=== PATIENT | female | born 1985 | race Caucasian/White ===

== ENCOUNTER 2016-04-15 10:01 | Day surgery (SDC) | payer OTHER ==
[2016-04-07 13:52] LABS: HEMATOCRIT 33.6 % (37.0-47.0); HEMOGLOBIN 10.4 g/dL (12.0-16.0); MCH 21.4 PG (27-31); MCV 69.3 FL (81-99); MPV 9.4 FL (7.4-10.4); RBC 4.85 XMIL (4.2-5.4)
[2016-04-07 14:22] LABS: AGAP 12; ALBUMIN 4.4 g/dL (3.5-5.0); ALKALINE PHOSPHATASE 53 U/L (32-104); BUN 10 mg/dL (8-22); CALCIUM 9.9 mg/dL (8.8-10.2); CHLORIDE 101 mmol/L (98-107); COSMO 281; GOT 14 U/L (10-30); GPT 13 U/L (10-36); POTASSIUM 4.5 mmol/L (3.5-5.1); SODIUM 141 mmol/L (136-145); TCO2 28 mmol/L (25-35); TOTAL BILIRUBIN 0.19 mg/dL (0.20-1.00); TOTAL PROTEIN 7.4 g/dL (6.3-8.3)
[2016-04-15] MEDS ORDERED: REGLAN ONE (10:28)
[2016-04-15] MEDS ORDERED: LR 1,000 ML ONE ×3 (10:28→12:27)
[2016-04-15] MEDS ORDERED: PEPCID ONE (10:28)
[2016-04-15] MEDS ORDERED: KEFZOL 2 GM/D5W 50 ML ONE (10:29)
[2016-04-15] MEDS ORDERED: MARCAINE 0.25% PF/EPI 1:200,000 ONE (12:27)
[2016-04-15] MEDS ORDERED: SODIUM CHLORIDE 0.9% ONE (12:27)
[2016-04-15] MEDS ORDERED: VERSED ONE (14:02)
[2016-04-15] MEDS ORDERED: DIPRIVAN 1% ONE (14:02)
[2016-04-15] MEDS ORDERED: FENTANYL ONE (14:03)
[2016-04-15] MEDS ORDERED: XYLOCAINE-MPF 2% ONE (14:11)
[2016-04-15] MEDS ORDERED: ZEMURON ONE (14:11)
[2016-04-15] MEDS ORDERED: DECADRON ONE (14:11)
[2016-04-15] MEDS ORDERED: ZOFRAN ONE (14:11)
[2016-04-15] MEDS ORDERED: QUELICIN (DOSE) ONE (14:11)
[2016-04-15] MEDS ORDERED: NEOSTIGMINE ONE (14:11)
[2016-04-15] MEDS ORDERED: ROBINUL ONE (14:11)
[2016-04-15] MEDS ORDERED: TORADOL ONE (14:11)
--- NOTE | 2016-04-15 14:20 | Diag Imaging Result Document ---
PROCEDURE NAME: OPERATIVE CHOLANGIOGRAM - 04/15/2016 INTRAOPERATIVE CHOLANGIOGRAM: FINDINGS: There is no evidence of obstruction or filling defect. IMPRESSION: No evidence of retained stones.
[2016-04-15] MEDS: DILAUDID ONE ×2 (14:29→14:34)
[2016-04-15] MEDS ORDERED: LR 500 ML ONE (14:30)
[2016-04-15] MEDS ORDERED: BUPRENEX IV PRN (15:01)
[2016-04-15] MEDS ORDERED: NORCO-10 PO PRN (15:01)
[2016-04-15] MEDS ORDERED: ZOFRAN IV PRN (15:01)
[2016-04-15] MEDS ORDERED: NORCO-10 ONE (15:06)
[2016-04-15 15:10] VITALS: BP 118/78
--- NOTE | 2016-04-15 15:49 | OPERATIVE NOTE ---
PROCEDURE DATE: 04/15/2016 PREOPERATIVE DIAGNOSIS: Chronic cholecystitis and biliary dyskinesia. POSTOPERATIVE DIAGNOSIS: Chronic cholecystitis and biliary dyskinesia. PROCEDURE: Laparoscopic cholecystectomy with operative cholangiogram. SURGEON: Chung Benítez MD ANESTHESIA: General. ESTIMATED BLOOD LOSS: 5 mL. COMPLICATIONS: None apparent. SPECIMENS: Gallbladder. FINDINGS: The gallbladder was moderately distended. The cholangiogram revealed normal hepatic radicals and common bile duct. There was flow of contrast into the duodenum without any filling defects or stenoses appreciated. TECHNIQUE: The patient was brought to the operating room and placed supine on the table. General anesthesia was induced. She was prepped and draped in the usual sterile fashion, 0.25% Marcaine with epinephrine was used to anesthetize our skin incisions. An 11 mm incision was made below the umbilicus. The fascia was exposed and incised sharply. Entry into the peritoneal cavity was obtained under direct vision with the Optiview device. Pneumoperitoneum was established. The camera was inserted. There was no evidence of injury to underlying structures. She was placed in reverse Trendelenburg and left rotation. Three 5 mm incision and ports were placed in the epigastric right upper quadrant per usual routine under direct vision. The dome of the gallbladder was grasped by the Allis clamp and lifted up superiorly. The triangle of Calot was then dissected out with the Maryland forceps and hook bluntly and I used the hook cautery to incise the peritoneum and fibroareolar tissue within the triangle. The critical view was obtained. The gallbladder liver junction was seen. There were only 2 structures entering the gallbladder, the cystic duct and cystic artery. A clip was placed on the distal cystic duct. A ductotomy was then made proximal to this with scissors. A 14-gauge Angiocath was passed through the right upper quadrant. The Taut cholangiogram catheter was passed through this into the cystic duct and held in place with a clip. The cholangiogram was performed with findings as noted above. The clip, catheter, and Angiocath were then removed. Two clips were placed on the proximal cystic duct. It was divided distal to these 2 with scissors. The cystic artery was clipped proximally and distally and incised in between with scissors. The gallbladder was then taken off the liver bed using hook cautery, 2 small holes were made in the back wall of the gallbladder while dissecting it off the liver, some bile spilled out, but no stones were visualized. After the gallbladder was detached from the liver, it was placed in an EndoCatch bag. I then irrigated copiously with saline and suctioned out the old bile and irrigant and old blood. I reinspected the dissection area, there were no signs of any bleeding or bile leakage. I brought the gallbladder and bag out through the umbilical port site under direct vision. The umbilical fascia was closed with a [id number] 0 Vicryl using the Armando-Robert device. I then desufflated the abdomen and removed the ports. The skin was closed with running 4-0 subcuticular Monocryl and Steri-Strips. There were no apparent complications. She was awakened in stable condition and transferred to the recovery room.
[2016-04-16] MEDS ORDERED: DIPRIVAN 1% ONE (06:24)
== END 2016-04-15 15:26 | disposition home or self-care (01) ==
LOC: OPS 10:01
PROVIDERS: ATTEND Surgery
DX: K81.1 Chronic cholecystitis (principal)
CPT/HCPCS: 74300; 80053; 85027; 88304; C1751; J0330; J0690; J1100; J1170; J1885; J2250; J2405; J3010; J7120; Q9966; J2710; S0020

== ENCOUNTER 2019-04-10 05:28 | Observation (INO) ==
[2019-04-03 10:08] LABS: URINE SOURCE VOIDED
[2019-04-03 10:12] LABS: BASO# 0.05 X1000 (0.0-0.2); BASO% 0.6 % (0.0-0.8); EOS# 0.36 X1000 (0.0-0.7); EOS% 4.2 % (0.0-10.0); HEMATOCRIT 42.1 % (37.0-47.0); HEMOGLOBIN 14.1 g/dL (12.0-16.0); IMM GRAN# 0.02 X1000 (0.0-0.04); IMM GRAN% 0.2 % (0.0-0.5); LYMPH# 2.59 X1000 (1.2-3.4); LYMPH% 29.9 % (20.5-51.1); MCH 28.4 PG (27-31); MCHC 33.5 g/dL (33-37); MCV 84.7 FL (81-99); MONO% 8.1 % (1.7-9.3); MPV 9.9 FL (7.4-10.4); NEUT# 4.95 X1000 (1.4-6.5); PLT 348 X1000 (130-400); RBC 4.97 XMIL (4.2-5.4); RDW 13.2 % (11.5-14.5); WBC 8.67 X1000 (4.8-10.8)
[2019-04-03 10:25] LABS: BILIRUBIN URINE NEGATIVE (NEGATIVE); BLOOD URINE SMALL (NEGATIVE); COLOR YELLOW; GLUCOSE URINE NEGATIVE (NEGATIVE); KETONE URINE NEGATIVE (NEGATIVE); LEUKOCYTES URINE TRACE (NEGATIVE); NITRITE URINE NEGATIVE (NEGATIVE); PH URINE 5.5; PROTEIN URINE NEGATIVE (NEGATIVE); SP GRAVITY URINE 1.019; TURBIDITY URINE CLEAR (CLEAR); UROBILINOGEN URINE NORMAL (NORMAL)
[2019-04-03 10:26] LABS: UR EPITHELIAL CELLS <10 /HPF (<10); URINE BACTERIA 1+ /HPF; URINE RBC <10 /HPF (<10); URINE WBC <10 /HPF (<10)
[2019-04-10] MEDS ORDERED: CLINDAMYCIN 900 MG/D5W 900 MG/50 ML IVPB ONE (05:46)
[2019-04-10] MEDS ORDERED: GENTAMICIN 80 MG/NS 80 MG/50 ML IVPB ONE (05:47)
[2019-04-10] MEDS ORDERED: LR 1,000 ML ONE ×3 (05:47→10:45)
[2019-04-10] MEDS ORDERED: SENSORCAINE 0.25%/EPI 1:200,000 ONE (06:30)
[2019-04-10] MEDS ORDERED: FENTANYL ONE (06:34)
[2019-04-10] MEDS ORDERED: DIPRIVAN 1% ONE (06:34)
[2019-04-10] MEDS ORDERED: VERSED ONE (06:34)
[2019-04-10] MEDS ORDERED: ROBINUL ONE ×3 (06:36→09:24)
[2019-04-10] MEDS ORDERED: XYLOCAINE-MPF 2% ONE (06:36)
[2019-04-10] MEDS ORDERED: QUELICIN (DOSE) ONE (06:36)
[2019-04-10] MEDS ORDERED: STERILE WATER INJ. ONE (06:36)
[2019-04-10] MEDS ORDERED: NORCURON ONE (06:36)
[2019-04-10] MEDS ORDERED: REGLAN ONE (07:00)
[2019-04-10] MEDS ORDERED: PEPCID ONE (07:01)
--- NOTE | 2019-04-10 07:13 | HISTORY AND PHYSICAL ---
HISTORY OF PRESENT ILLNESS: Mrs. Busby is a 33-year-old G3, P2, 0-1-2 who presents with complaints of abnormal uterine bleeding/heavy menstrual bleeding. The patient describes menstrual cycle lasting approximately 7 days with 2 to 3 days of severely heavy bleeding. Reports a history of taking iron twice a day without improvement in blood levels. Also, reports a history of a Mirena IUD used resulting in worsening heavy menstrual bleeding. The patient admits to painful coitus and dysmenorrhea but denies dyschezia. ALLERGIES: Benadryl, hives, penicillin, and swelling. MEDICATIONS: Vitamin B12, metformin 500 mg p.o. b.i.d., Flexeril 10 mg p.o. t.i.d. p.r.n., vitamin D3, and vitamin D2. PAST MEDICAL HISTORY: Diabetes. Iron deficiency anemia. PAST SURGICAL HISTORY: Cholecystectomy. Dilation and curettage. delivery x2. END MAKER HISTORY: Last menstrual period 03/28/2019. Pap smear February of 2019. Negative for intraepithelial lesions or malignancies. Menarche age 9. Denies STD exposure. OBSTETRICAL HISTORY: G3, P2, 0-1-2. Two prior full-term deliveries, and 1 miscarriage resulting in a D and C. SOCIAL HISTORY: Denies tobacco, alcohol, or drug use. FAMILY HISTORY: Noncontributory. PHYSICAL EXAMINATION: VITAL SIGNS: Temperature 97 degrees Fahrenheit, pulse rate 71, blood pressure 112/81, height 5 feet 3 inches tall, and weight 214 pounds. Body mass index 37.9 kg/m2. GENERAL: Alert, awake, and oriented x3. No acute distress. CARDIOVASCULAR: Regular rate and rhythm. Positive S1, S2. RESPIRATORY: Clear to auscultation bilaterally. Negative rhonchi, rales or wheezing. ABDOMEN: Soft and nontender to palpation. Positive bowel sounds in all 4 quadrants. EXTREMITIES: Negative calf tenderness. Negative edema. LABORATORY: WBCs 8.67, hemoglobin 14.1, hematocrit 42.1, and platelets 348,000. Transvaginal ultrasound imaging shows 8.4 x 6 x 4.1 cm sized uterus with 9 mm endometrial thickening, and a 4.3 uterine wall mass at the fundus likely representing leiomyoma. ASSESSMENT: Mrs. Busby is a 33-year-old G3, P2, 0-1-2 with abnormal uterine bleeding/heavy menstrual bleeding likely due to leiomyoma requesting definitive management for abnormal uterine bleeding. PLAN: 1. Admit for robotic assisted total laparoscopic hysterectomy with bilateral salpingectomy. 2. Patient counseled on risks, benefits, and alternatives of procedure. Alternatives, not limited to combined hormonal contraceptive methods and long-acting reversible contraceptive methods as well as endometrial ablation. Risks not limited to infection, bleeding, injury to surrounding organs including bladder, bowel, ureter, and need for laparotomy. The patient understands risks and agrees to procedure. 3. IV antibiotics will be given 1 hour prior to procedure. 4. Patient NPO 8 hours prior to procedure.
[2019-04-10] MEDS ORDERED: DECADRON ONE (07:15)
[2019-04-10] MEDS ORDERED: ZOFRAN ONE (07:15)
[2019-04-10] MEDS ORDERED: TORADOL ONE (07:15)
[2019-04-10] MEDS ORDERED: NEOSTIGMINE ONE ×2 (07:16→09:24)
[2019-04-10 09:50] LABS: URINE SOURCE CATH
[2019-04-10] MEDS ORDERED: AMBIEN PO PRN (10:08)
[2019-04-10] MEDS ORDERED: NORCO-10 PO PRN (10:08)
[2019-04-10 10:09] LABS: BILIRUBIN URINE NEGATIVE (NEGATIVE); BLOOD URINE NEGATIVE (NEGATIVE); COLOR YELLOW; GLUCOSE URINE NEGATIVE (NEGATIVE); KETONE URINE NEGATIVE (NEGATIVE); LEUKOCYTES URINE NEGATIVE (NEGATIVE); NITRITE URINE NEGATIVE (NEGATIVE); PH URINE 6.5; PROTEIN URINE NEGATIVE (NEGATIVE); SP GRAVITY URINE 1.023; TURBIDITY URINE CLEAR (CLEAR); UROBILINOGEN URINE NORMAL (NORMAL)
[2019-04-10 10:11] LABS: UR EPITHELIAL CELLS <10 /HPF (<10); URINE BACTERIA NEGATIVE /HPF; URINE RBC <10 /HPF (<10); URINE WBC <10 /HPF (<10)
[2019-04-10] MEDS ORDERED: PHENERGAN ONE (10:49)
[2019-04-10] MEDS: LR 1,000 ML IV SCH ×2 (11:53→18:39)
[2019-04-10] MEDS: PYRIDIUM PO SCH ×2 (14:09→17:35)
[2019-04-10] MEDS: MYLICON PO SCH ×3 (14:09→23:40)
[2019-04-10] MEDS: OFIRMEV 1000 MG/ISOTONIC SOLN 1,000 MG/100 ML BOTTLE IV SCH ×2 (14:09→23:39)
[2019-04-10] MEDS: TORADOL IV SCH ×2 (17:35→23:40)
[2019-04-10] MEDS: GLUCOPHAGE PO SCH (17:35)
[2019-04-10] MEDS ORDERED: PERIDEX MT SCH (21:00)
[2019-04-10] MEDS: PERIDEX MT SCH (23:39)
[2019-04-10] MEDS: COLACE PO SCH (23:40)
[2019-04-11] MEDS: LR 1,000 ML IV SCH ×2 (03:59→04:30)
[2019-04-11] MEDS: OFIRMEV 1000 MG/ISOTONIC SOLN 1,000 MG/100 ML BOTTLE IV SCH (04:32)
[2019-04-11] MEDS: TORADOL IV SCH (04:33)
[2019-04-11 07:04] LABS: HEMATOCRIT 40.9 % (37.0-47.0); HEMOGLOBIN 13.8 g/dL (12.0-16.0); MCH 28.1 PG (27-31); MCHC 33.7 g/dL (33-37); MCV 83.3 FL (81-99); MPV 9.9 FL (7.4-10.4); RBC 4.91 XMIL (4.2-5.4); RDW 13.4 % (11.5-14.5); WBC 18.49 X1000 (4.8-10.8)
[2019-04-11 07:47] VITALS: BP 107/71
--- NOTE | 2019-04-11 08:17 | PROGRESS NOTE ---
DATE: 04/11/2019 SUBJECTIVE: Ms. Li Busby is a 33-year-old female status post robotic- assisted total laparoscopic hysterectomy with bilateral salpingectomy. Currently, the patient is doing well with minor abdominal pain. The patient states she is feeling better. She states she has had no bowel movements or flatus but has urinated. The patient states she is able to tolerate liquids and solid foods as of this morning with no nausea or vomiting. The patient has no new complaints at this time. The patient states that she is walking around. The patient states her pain is controlled with the Tylenol and Toradol she is getting from the nurses. OBJECTIVE: Vital signs: Current temperature 98.3, maximum temperature 98.3, heart rate 89, respiratory rate 21, blood pressure 107/68, O2 saturation 95% on room air. General appearance: The patient appears well, no acute distress. Neck: Supple. HEENT: Mucosa is pink and moist. Anicteric. Acyanotic. Chest: Lungs clear to auscultation. No rales, no rhonchi, no wheezing, no respiratory distress. Cardiovascular: S1, S2, regular rate and rhythm. No rubs, no murmurs, no gallops, no JVD. Abdomen: Soft, nontender, bowel sounds present in all 4 quadrants. Incision site clean, dry, intact. Extremities: 1+ edema, 2+ pedal pulses bilaterally. Psychiatric: Normal mood, affect. The patient is alert and oriented x4. ASSESSMENT: Li Busby is a 33-year-old postoperative day number 1 status post robotic- assisted total laparoscopic hysterectomy with bilateral salpingectomy doing well. PLAN: 1. Continue pain control. 2. Discontinue Pang catheter. 3. Advance diet to solids with flatus. 4. Encourage ambulation. 5. Possible discharge today. Dictated by Jessica Damico Medical Student for Dallin Cash DO This chart was documented by, Sher Kidd and accurately reflects the services performed, treatment plan and medical decisions as attested by the providers signature Dallin Cash DO. I personally saw and examined Mrs. Busby. I agree with MS-3 assessment and plan. Plan for d/c home today. Reviewed pain mgt plan and advised on continued ambulation. Plan to f/u in office in 1 week MTDD
[2019-04-11] MEDS: PYRIDIUM PO SCH (08:39)
[2019-04-11] MEDS: COLACE PO SCH (08:39)
[2019-04-11] MEDS: PERIDEX MT SCH (08:39)
[2019-04-11] MEDS: GLUCOPHAGE PO SCH (08:39)
[2019-04-11] MEDS: MYLICON PO SCH (08:40)
== END 2019-04-11 11:25 | disposition home or self-care (01) ==
LOC: OPS 05:28 → 4N 05:28 → EDSTATUS 07:00 → OPS 04-11 11:25
PROVIDERS: ATTEND Obstetrics & Gynecology